=== PATIENT | male | born 1955 | race Two or more races ===

== ENCOUNTER 2021-07-14 10:20 | Outpatient (CLI) | payer OTHER | END 2021-07-14 10:36 | disposition home or self-care (01) | LOC: SONOGRAMA 10:20 | PROVIDERS: ATTEND Pathology Anatomic Pathology & Clinical Pathology | DX: E04.1 Nontoxic single thyroid nodule (principal) ==

== ENCOUNTER 2024-05-26 08:49 | Outpatient (CLI) | payer OTHER | END 2024-05-26 08:52 | disposition home or self-care (01) | LOC: SONOGRAMA 08:49 | PROVIDERS: ATTEND Pathology Anatomic Pathology | DX: D34 Benign neoplasm of thyroid gland (principal); E07.89 Other specified disorders of thyroid; C73 Malignant neoplasm of thyroid gland ==